=== PATIENT | male | born 2005 | race Caucasian/White ===

== ENCOUNTER 2024-12-25 18:18 | Emergency (ER) | payer BC, SELFPAY ==
[2024-12-25 18:27] VITALS: BP 116/53
[2024-12-25 18:42] LABS: Hematocrit 41.8 % (39.0-52.0); Hemoglobin 13.9 g/dL (13.0-18.0); Mean Corp Hgb Conc. 33.3 g/dL (33.0-37.0); Mean Corpuscular Volume 89.7 fL (80.0-94.0); Nucleated Red Blood Cells % 0 % (-); Platelet Count 318 10^3/uL (130-400); Red Cell Dist. Width 12.5 % (11.5-14.5)
[2024-12-25 19:05] LABS: ALT (SGPT) 27 U/L (0-50); AST (SGOT) 30 U/L (17-59); Albumin 5.1 g/dl (3.5-5.0); Alkaline Phosphatase 61 U/L (38-126); Blood Urea Nitrogen 12 mg/dl (9-20); Calcium 9.6 mg/dl (8.4-10.2); Carbon Dioxide 25 mmol/L (22-30); Chloride 100 mmol/L (98-107); Glucose 164 mg/dl (70-99); Potassium 3.9 mmol/L (3.5-5.1); Sodium 133 mmol/L (135-145); Total Protein 7.9 g/dl (6.3-8.2); eGFR > 60.00
[2024-12-25 19:18] LABS: Troponin I < 0.012 ng/ml
[2024-12-25 21:18] VITALS: BP 106/53
[2024-12-25 21:19] VITALS: BMI 20.8
[2024-12-25 22:00] VITALS: BP 100/62
--- NOTE | 2024-12-25 22:27 | ED.GENMED ---
History of Present Illness
General
Chief Complaint: Fainting/Passed Out
Source: patient
Exam Limitations: none
Time Seen by Provider: 12/25/24 20:42
Nursing documentation reviewed up to this point in time: agreed with
History of Present Illness
History of Present Illness:
Patient is a 19-year-old male who presents to the emergency department with mom via EMS after syncopal event at home. Patient states that he was playing with his puppy who accidentally bit him on the tip of his right thumb. The laceration began to
bleed and as he was placing a Band-Aid on it he became very lightheaded and experienced, vision. His mom then states that he fainted and struck his head on tile floor. He was back at his baseline in less than 1 minute. They called 901 for
transportation to the emergency department.
By my assessment, patient states he feels much better. He has mild discomfort in the back of his head where he struck the tile. He denies any current nausea however did have 1 episode of vomiting while in EMS. He denies any changes in vision or
dizziness. He has had no troubles ambulating since fall. He denies any neck or back pain. No pain in his extremities. No chest pain or shortness of breath currently or preceding syncope.
Patient states his dog is up-to-date on vaccinations. The patient's last tetanus shot was > 5 years ago.
He states that the cut on his right thumb has since stopped bleeding.
Past History
Past History
ED Past Medical History: Psychiatric (Anxiety, panic attacks)
Social History
Tobacco: Vaping
Alcohol: None
Personal: Single
Living: with family
Employment: Employed
Review of Systems
Review of Systems
Allergies reviewed?: Yes
All Other Systems: ROS reviewed and negative except as documented in HPI and ROS
Phy Exam
Physical Exam
Physical Exam:
Vitals: Patient's vital signs are stable. Afebrile
General: Patient is well appearing, no acute distress. Nontoxic appearing
Skin: Minor contusion to vertex of scalp. Approximately 0.5 cm very superficial laceration/bite at lateral aspect of nail without bleeding.
Head: Normocephalic, minor contusion to vertex of scalp as above.
Eyes: Sclera nonicteric. Pupils equal round reactive light bilaterally. EOMs intact. No nystagmus.
Throat: Protecting airway
Neck: Normal ROM, no cervical spine tenderness, no meningismus
Cardiac: Regular rate and rhythm, no murmurs. 2+ palpable radial pulses bilateral
Pulm: Normal respiratory effort, no wheezes, rales, rhonchi heard on exam
Abdomen: No abdominal tenderness.
Extremities: No evidence of cyanosis or edema. Strength 5/5 in bilateral upper and lower extremities with normal sensation
Neuro: AAOx3. CN II-XII grossly intact. No focal neurologic deficits.
Psychiatric: Normal affect.
Course
Orders/Labs/Results
Orders:
Orders
12/25/24 18:20
EKG [Electrocardiogram (*1)] Urgent
Reason for Study: Syncope
EKG- Treatment ONCE
12/25/24 18:34
Comprehensive Metabolic Panel Urgent
Troponin I Urgent
12/25/24 18:35
Complete Blood Count/With Diff Urgent
12/25/24 21:45
CT Head W/o Iv Contrast Urgent
Comment:
Reason For Exam: syncope, head strike
0.9% Sodium Chloride 1000 ml [Nss] 1,000 ml IV BOLUS
Acetaminophen [Tylenol] 650 mg PO NOW STA
Tetanus/Diphth/Acelpertussis [Adacel] 0.5 ml IM .ONCE ONE
12/25/24 22:55
Doxycycline [Vibramycin] 100 mg PO NOW STA
Abnormal Lab Results
12/25/24 12/25/24
18:34 18:35
RBC 4.66 L 10^6/uL
(4.70-6.10)
MPV 10.8 H fL
(7.4-10.4)
Absolute Neuts (auto) 7.3 H 10^3/uL
(1.4-6.5)
Sodium 133 L mmol/L
(135-145)
Glucose 164 H mg/dl
(70-99)
Albumin 5.1 H g/dl
(3.5-5.0)
12/25/24 18:35
12/25/24 18:34
Vital Signs
Initial and Last Documented VS:
Initial Vital Signs
Temp Pulse Resp BP Pulse Ox
97.9 F 56 16 116/53 100
12/25/24 18:27 12/25/24 18:27 12/25/24 18:27 12/25/24 18:27 12/25/24 18:27
Last Documented Vital Signs
Temp Pulse Resp BP Pulse Ox
97.9 F 68 18 100/62 99
12/25/24 18:27 12/25/24 23:00 12/25/24 23:00 12/25/24 22:00 12/25/24 23:00
MDM/Problems Addressed
Differential Diagnosis Includes:
Not limited to: Dog bite, laceration, contusion, concussion, acute dehydration, vasovagal syncope, less likely cardiac arrhythmia or seizure, etc.
MDM/Problems Addressed:
19-year-old male presenting via EMS after syncope at home. This occurred after minor dog bite and small bleeding laceration which he was dressing with a bandaid at the time. He felt lightheaded and experienced tunnel vision prior to syncope and
unfortunately struck his head on the tile floor. This was witnessed by mom.
Stable on arrival. Patient well appearing on exam, in no distress. Mild contusion to crown of scalp. No other evidence of traumatic injuries. He is neurologically intact. Very minor superficial cut (suspected bite) at distal right thumb. No
bleeding.
Labs were sent prior to my evaluation without clinically significant abnormalities. CBC and chemistry unremarkable. Troponin is undetectable. EKG shows no acute ischemic changes or evidence of arrhythmia.
Overall, impression is likely vasovagal syncope following minor dog bite. Do not suspect cardiac syncope or seizure.
Given head strike, will obtain CT head. Will update tdap. No indication for rabies prophylaxis as dog is vaccinated.
Dog bite very minor with no active bleeding � no indication for primary closure. Will start patient on prophylactic antibiotics out of an abundance of caution.
CT without acute findings. Patient has remained stable in ED. Possible concussion however symptoms well controlled and feel stable for discharge home with return precautions and supportive care. Patient ambulating out of department without
difficulty.
Chronic conditions affecting care:
N/A
Acute Exacerbation and/or Progression of Chronic Illness:
N/A
*Radiology
Radiology exam reviewed: radiology read reviewed
*Pulse Oximetry
SaO2: 99
Oxygen Mode of Delivery: Room air
Patient hypoxic: no
*EKG
Interpreted by ED Provider?: Yes
EKG Intrepretation Date: 12/25/24
Interpretation: normal
Comparison EKG: no comparison EKG present
Heart Rate: 57
Rate: bradycardiac
Rhythm: sinus
[place]: normal axis
Interval: normal QT interval
QRS Pattern: normal QRS
Ischemia: no ischemia
*Charge Auditor Interpretation
Rate: normal
Interpretation: normal
Heart Rate: 64
Rhythm: sinus
*Critical Care Note
Total Time (30-74mins, 75-104mins- exclusive of procedures): Not Applicable
ED Attending Note
-
Portions of this chart may have been created with voice recognition software.� Occasional wrong word or��sound alike� substitutions may have occurred due to the inherent limitations of voice recognition software.
Discharge Plan
Departure
Patient Disposition: Home (Routine Discharge)
Date of Disposition: 12/25/24
Time of Disposition: 22:56
Patient with high blood pressure during this ER visit?: No
Condition: Good
Discharge Problem:
Syncope, Dog bite of right thumb
Instructions: Syncope (Fainting) (DC), Concussion in adults - ED (DC), Animal bites - ED (DC)
Prescriptions:
New
doxycycline monohydrate 100 mg capsule
100 mg PO BID 5 Days Qty: 10 0RF
Referrals:
NONE,* [Family Provider, Internal Medicine]
Stand Alone Forms: Return to Work
Activity Restrictions/Additional Instructions:
RETURN TO THE EMERGENCY DEPARTMENT WITH ANY SEVERE HEADACHE OR NECK PAIN, DIZZINESS/LIGHTHEADEDNESS FOR ADDITIONAL EPISODES OF FAINTING, CHEST PAIN OR SHORTNESS OF BREATH, VOMITING, VISUAL CHANGES, OR ANY EVIDENCE OF INFECTION
� As discussed, your lab work and head CT showed no acute abnormalities. I suspect you likely sustained a vasovagal response following the dog bite.
- Please keep wound clean and dry. Take antibiotics twice a day X 5 days.
- Continue to stay well-hydrated and apply rest. Take Tylenol and/or Motrin as needed for pain.
- Follow-up with primary care as needed for further evaluation/management and to ensure that your symptoms improve
Monitor your symptoms closely and return to the emergency department with any acute worsening/new symptoms or any other concerns
Interventions
Interventions:
*Risk Screen - Suicide Last Done: 12/25/24 18:27
*General Assessment Last Done: 12/25/24 18:27
*Neglect/Abuse Screening Last Done: 12/25/24 18:27
*ED- Fall Risk Assessment Last Done: 12/25/24 21:20
*ED COVID-19 Vaccine History Last Done: 12/25/24 21:20
*ED Influenza Vaccine History Last Done: 12/25/24 21:20
*Nursing Disposition Last Done: 12/25/24 23:30
ED- Cardiac Assessment Last Done: 12/25/24 21:27
ED- Neurological Assessment Last Done: 12/25/24 21:27
Discharge Date and Time
Discharge Date/Time: 12/25/24 23:30
Print Language: GERMAN
[2024-12-25] MEDS: ADACEL 0.5 ML IM (22:30)
[2024-12-25] MEDS: TYLENOL 650 MG PO (22:31)
[2024-12-25] MEDS: NSS 1000 IV (22:34)
[2024-12-25] MEDS: VIBRAMYCIN 100 MG PO (23:12)
== END 2024-12-25 23:30 | disposition home or self-care (01) ==
LOC: EMR 18:18
PROVIDERS: Student in an Organized Health Care Education/Training Program; EMERGENCY PHYSICIAN Student in an Organized Health Care Education/Training Program
DX: R55 Syncope and collapse (principal); S61.051A Open bite of right thumb without damage to nail, initial encounter; R00.1 Bradycardia, unspecified; F17.290 Nicotine dependence, other tobacco product, uncomplicated; Z23 Encounter for immunization; W54.0XXA Bitten by dog, initial encounter; Y92.009 Unspecified place in unspecified non-institutional (private) residence as the place of occurrence of the external cause
CPT/HCPCS: 99284; 96360; 90471; 70450; 80053; 84484; 85025; 90715; 93005